=== PATIENT | male | born 1940 | race Caucasian/White ===

== ENCOUNTER 2017-06-29 15:52 | Emergency (ER) | payer BC ==
[~2017-06-29] VITALS: Ht 177.8 cm; Wt 81.0 kg
[~2017-06-29 15:52] MED LIST: ALLOPURINOL300 MG PO; DEBROX6.5 % AU; GLUCOSAMINE1 TA1 PO; PRILOSEC20 MG PO
[2017-06-29 16:51] LABS: IMMATURE GRANULOCYTES 0.5 % (0.0-1.0); MEAN CORPUSCULAR HGB 22.8 pG CALC (26.0-32.0); MEAN CORPUSCULAR HGB CONC 30.8 g/L CALC (32.0-36.0); NEUT# 11.83 thou/uL (1.82-7.42); RED BLOOD COUNT 4.73 mill/uL (4.70-6.10); RED CELL DISTRI WIDTH 16.1 % (11.5-15.5)
[2017-06-29 17:07] LABS: BILIRUBIN, TOTAL 1.4 mg/dL (0.0-1.4); POTASSIUM 4.2 mmol/l (3.5-5.1); TOTAL PROTEIN 6.5 g/dL (6.3-8.2)
[2017-06-29] MEDS ORDERED: BIOFLEX PO (17:08)
[2017-06-29 17:12] LABS: HEMATOCRIT 35.1 % (39.0-50.0); HEMOGLOBIN 10.8 g/dl (14.0-18.0); MEAN CELL VOLUME 74.2 fL CALC (80.0-100.0)
[2017-06-29 17:14] LABS: CREATININE 2.5 mg/dL (0.7-1.3)
[2017-06-29 17:20] LABS: URINE BILIRUBIN - DIPSTICK NEGATIVE (NEGATIVE); URINE BLOOD DIPSTICK LARGE (NEGATIVE); URINE COLOR YELLOW; URINE GLUCOSE - DIPSTICK NEGATIVE (NEGATIVE); URINE KETONE TRACE mg/dL (NEGATIVE); URINE LEUK ESTERASE NEGATIVE (NEGATIVE); URINE NITRITE - DIPSTICK NEGATIVE (Negative); URINE PROTEIN - DIPSTICK 100 mg/dL (NEG-TRACE); URINE SPECIFIC GRAVITY >=1.030; URINE UROBILINOGEN - DIPSTICK 0.2 E.U./dL (0.2)
[2017-06-29 17:26] LABS: URINE CLARITY SL CLOUDY
[2017-06-29 17:28] LABS: URINE RENAL EPITHELIAL CELLS FEW hpf; URINE WBC 0-2 WBC/hpf (0-5)
[2017-06-29 17:29] LABS: URINE AMORPH SEDIMENT MANY hpf (NONE-FER)
[2017-06-29 19:09] VITALS: BP 100/56
== END 2017-06-29 19:09 | disposition short-term general hospital (02) | DRG 872 ==
LOC: ED 15:52
PROVIDERS: Emergency Medicine
PROC: 0T9B70Z Drainage of Bladder with Drainage Device, Via Natural or Artificial Opening (ICD-10-PCS; principal; 2017-06-29)
DX: A40.0 Sepsis due to streptococcus, group A (principal); R50.9 Fever, unspecified; R19.7 Diarrhea, unspecified; R22.31 Localized swelling, mass and lump, right upper limb

== ENCOUNTER 2020-10-19 16:55 | Emergency (ER) | payer OTHER ==
[~2020-10-19] VITALS: Ht 177.8 cm; Wt 84.0 kg
[~2020-10-19 16:55] MED LIST changes: +BIOFLEX PO
[2020-10-19 17:49] LABS: IMMATURE GRANULOCYTES 0.5 % (0.0-5.0); MEAN CORPUSCULAR HGB 31.9 pG CALC (26.0-32.0); MEAN CORPUSCULAR HGB CONC 32.5 g/dL CAL (32.0-36.0); NEUT# 6.67 thou/uL (1.82-7.42); RED BLOOD COUNT 2.73 mill/uL (4.70-6.10); RED CELL DISTRI WIDTH 15.4 % (11.5-15.5)
[2020-10-19 17:53] LABS: HEMATOCRIT 26.8 % (39.0-50.0); HEMOGLOBIN 8.7 g/dl (14.0-18.0); MEAN CELL VOLUME 98.2 fL CALC (80.0-100.0)
[2020-10-19 17:54] LABS: ALBUMIN 3.9 g/dL (3.2-5.0); ALKALINE PHOSPHATASE 52 u/l (38-126); ANION GAP 13 (6-22 (CALC)); BILIRUBIN, TOTAL 0.5 mg/dL (0.0-1.4); BUN 23 mg/dL (8-23); BUN/CREATININE RATIO 21 (12-20 (CALC)); CARBON DIOXIDE 23 mmol/l (22-30); CHLORIDE 105 mmol/l (95-108); CREATININE 1.1 mg/dL (0.7-1.3); GFR > 60 ML/MIN (>=60 (CALC)); GFR FOR AFR.AMER. > 60 ML/MIN (>=60 (CALC)); POTASSIUM 3.9 mmol/l (3.5-5.1); SGOT/AST 34 u/l (19-48); SODIUM 138 mmol/l (137-146); TOTAL PROTEIN 6.8 g/dL (6.3-8.2)
[2020-10-19 18:03] LABS: MYOGLOBIN 102 ng/mL (0 - 121)
[2020-10-19 19:53] VITALS: BP 119/68
== END 2020-10-19 20:00 | disposition home or self-care (01) | DRG 812 ==
LOC: ED 16:55
PROVIDERS: Emergency Medicine
DX: D64.9 Anemia, unspecified (principal); K62.5 Hemorrhage of anus and rectum; M10.9 Gout, unspecified; Z89.201 Acquired absence of right upper limb, unspecified level

== ENCOUNTER 2023-10-25 08:30 | Day surgery (SDC) | payer MEDICARE, BC ==
[~2023-10-25] VITALS: Ht 177.8 cm; Wt 77.6 kg
[~2023-10-25 08:30] MED LIST changes: +CIPROFLOXACN500 MG PO; +DORZOLAMIDE HCL/1 ML OU; +LATANOPROST0.005 % OU; +METRONIDAZOLE500 MG PO; +PANTOPRAZOLE SO40 M1 PO; +VENOFER20 MG/ML IV
[2023-10-25] MEDS ORDERED: FAMOTIDINE 10MG/ML 2ML SDV IV ONE (08:40)
[2023-10-25] MEDS ORDERED: LACTATED RINGER'S 1,000 ML IV ONE (08:40)
[2023-10-25 10:13] VITALS: BP 124/75
[2023-10-25] MEDS ORDERED: GLYCOPYRROLATE 0.2 MG/ML IV ONE (12:52)
[2023-10-25] MEDS ORDERED: LIDOCAINE HCL 2% 2ML SDV IV ONE (12:52)
[2023-10-25] MEDS ORDERED: PROPOFOL 200 MG/20 ML VIAL IV ONE (12:52)
== END 2023-10-25 10:26 | disposition home or self-care (01) ==
LOC: ORM 08:30
PROVIDERS: ATTEND Internal Medicine Gastroenterology
PROC: 0DBM8ZX Excision of Descending Colon, Via Natural or Artificial Opening Endoscopic, Diagnostic (ICD-10-PCS; principal; 2023-10-25)
DX: K57.31 Diverticulosis of large intestine without perforation or abscess with bleeding (principal); D12.4 Benign neoplasm of descending colon; K64.8 Other hemorrhoids; E78.5 Hyperlipidemia, unspecified; I10 Essential (primary) hypertension; K21.9 Gastro-esophageal reflux disease without esophagitis